=== PATIENT | female | born 1990 | race Caucasian/White ===

== ENCOUNTER 2019-10-31 11:15 | Emergency (ER) | payer OTHER ==
[~2019-10-31] VITALS: Ht 177.8 cm; Wt 65.8 kg
[~2019-10-31 11:15] MED LIST: MIRALAX255 GM PO; NORCO 5-325 TA1 EACH PO; TRI-SPRINTEC1 EACH PO
[2019-10-31] MEDS ORDERED: MOBIC15 MG PO (12:58)
[2019-10-31 13:06] VITALS: BP 112/70
== END 2019-10-31 13:18 | disposition home or self-care (01) ==
LOC: ER 11:15
DX: S01.01XA Laceration without foreign body of scalp, initial encounter (principal); W22.8XXA Striking against or struck by other objects, initial encounter; Y93.89 Activity, other specified; Y92.89 Other specified places as the place of occurrence of the external cause; Y99.8 Other external cause status